=== PATIENT | male | born 1985 | race Caucasian/White ===

== ENCOUNTER 2020-10-03 07:55 | Emergency (ER) | payer OTHER, SELFPAY ==
[2020-10-03 08:06] VITALS: BP 126/67; PULSE 73; RESP 16; TEMP 36.7; O2SAT 99
[2020-10-03] MEDS: KETOROLAC 30 MG/ML VIAL (*BKC) 60 MG IM (08:52)
--- NOTE | 2020-10-03 09:01 | ED.BACK ---
HPI - Back Pain/Injury General Chief Complaint: Back Pain/Injury Stated Complaint: Back Pain Time Seen by Provider: 10/03/20 08:11 Source: patient Mode of arrival: ambulatory Limitations: no limitations History of Present Illness HPI Narrative: 34-year-old male Essentially healthy Presents for evaluation of mid back pain Patient notes that he just moved here from [place], 3 days ago he was lifting and unpacking boxes and one was heavier than he thought it was going to be and he felt something pop and pain in his mid back He has had some relief in the interim from ibuprofen but symptoms have tended to return He does not have any neurologic symptoms at all, no radiating pain, no bowel or bladder symptoms, no numbness or weakness No pain with breathing Related Data Home Medications Medication Instructions Recorded Confirmed ibuprofen 600 mg PO Q6H PRN 10/03/20 Allergies Allergy/AdvReac Type Severity Reaction Status Date / Time No Known Allergies Allergy Verified 10/03/20 08:14 Review of Systems Review of Systems: All systems reviewed & are unremarkable except as noted in HPI and below Constitutional: Constitutional: Reports no additional constitutional complaints, Denies chills, Denies fever(s) and Denies headache(s) ENT: Denies headache(s) Cardiovascular: Cardiovascular: Denies chest pain and Denies dyspnea Respiratory: Respiratory: Denies cough and Denies dyspnea Musculoskeletal: Musculoskeletal: Reports back pain, Denies deformity, Denies arthralgias, Denies joint swelling and Denies numbness Integumentary/Breasts: Skin/Breast: Denies rash and Denies wounds Neurologic: Denies headache(s), Denies focal weakness, Denies numbness and Denies weakness Psychiatric: Psychiatric: Reports no additional psychiatric complaints Endocrine: Endocrine: Reports no additional endocrine complaints Hematologic/Lymphatic: Hematologic/Lymphatic: Reports no additional hematologic/lymphatic complaints Allergic/Immunologic: Allergic/Immunologic: Reports no additional allergic/immunologic complaints [facility] Social History Social History Gender identity (if verbalized by the patient): Male Exam Const: General: cooperative, no acute distress and alert Orientation/consciousness: patient oriented x3 (alert) HENMT: Head: normal to inspection, normocephalic and atraumatic Ears: external ears normal General nose exam: no epistaxis Eyes: Conjunctivae: conjunctivae normal EOM: EOMs intact bilaterally Neck: Neck: normal visual inspection, supple and no JVD Resp: Effort & Inspection: normal respiratory effort and not labored Auscultation: clear to auscultation bilaterally and other (BS =) Cardio: Rate: regular rate Rhythm: regular rhythm Heart sounds: no murmurs Back/Spine/Pelvis: Other: He has thoracic paraspinous tenderness and muscle spasm bilaterally which is a little bit worse on the right side starting infrascapular and approaching the lumbar area He has no rib tenderness, no focal midline tenderness Rotation to the right is mildly limited Skin: General skin exam: normal color and no rashes or lesions noted Neuro: General: patient oriented x3 (alert) and moves all extremities Speech: normal speech Other: Straight leg raise negative bilaterally while seated Extrem: General: normal to inspection Psych: Affect: normal affect Course Vital Signs Vital signs: Vital Signs Temperature 36.7 C 10/03/20 08:06 Pulse Rate 73 10/03/20 08:06 Respiratory Rate 16 10/03/20 08:06 Blood Pressure 126/67 10/03/20 08:06 Pulse Oximetry 99 10/03/20 08:06 Temperature 36.7 C 10/03/20 08:06 Pulse Rate 73 10/03/20 08:06 Respiratory Rate 16 10/03/20 08:06 Blood Pressure 126/67 10/03/20 08:06 Pulse Oximetry 99 10/03/20 08:06 Discharge Plan Discharge Clinical Impression: Acute thoracic myofascial strain Patient Disposition: Home, Self-Care Condition: Stable Instruc
== END 2020-10-03 09:14 | disposition home or self-care (01) ==
PROVIDERS: Emergency Provider Emergency Medicine
DX: S29.012A Strain of muscle and tendon of back wall of thorax, initial encounter (principal); X50.0XXA Overexertion from strenuous movement or load, initial encounter
CPT/HCPCS: 96372; 99283; J1885

== ENCOUNTER 2020-11-05 06:14 | Emergency (ER) | payer OTHER, SELFPAY ==
--- NOTE | ~2020-11-05 | XR_ITS ---
EXAMINATION: XR wrist RT min 3V, XR forearm RT 2V EXAM DATE: 11/05/2020 07:43 INDICATION: Trauma;gen pain Rt wrist and forearm; fall down stairs last p.m.. Initial encounter. TECHNIQUE: Right wrist frontal, frontal with ulnar deviation, oblique and lateral projections obtain ed and reviewed. Right forearm frontal and lateral projections obtained and reviewed. There is no p rior study for comparison. FINDINGS: Right wrist scapholunate joint space is maintained. There are no acute wrist or forearm fra ctures or dislocations identified. There is no subcutaneous gas. The soft tissue is unremarkable. There are no radiopaque foreign bodies. IMPRESSION: 1. Right wrist, forearm exam without acute osseous findings. Reviewed, dictated and finalized at location A. IMPRESSION: 1. Right wrist, forearm exam without acute osseous findings.
[2020-11-05 06:22] VITALS: BP 137/95; PULSE 80; RESP 16; TEMP 36.3; O2SAT 99
--- NOTE | 2020-11-05 07:57 | ED.GENADULT ---
HPI - General Adult General Chief complaint: Extremity Injury, Upper Stated complaint: injury to right forearm Time Seen by Provider: 11/05/20 07:01 History of Present Illness HPI narrative: Patient is a 34-year-old male who presents ER with right forearm and wrist pain. He had a trip and fall last night where he landed on outstretched hand. Sudden onset pain and had some tingling. He continues to ache and have discomfort with flexion extension of the wrist. No new numbness or tingling at this time. He did not strike his head or lose consciousness. Has not tried any pain medication. Related Data Home Medications Medication Instructions Recorded Confirmed ibuprofen 600 mg PO Q6H PRN 10/03/20 Allergies Allergy/AdvReac Type Severity Reaction Status Date / Time No Known Allergies Allergy Verified 11/05/20 06:15 Review of Systems Musculoskeletal: Musculoskeletal: Denies back pain, Reports arthralgias, Denies joint swelling and Denies muscle cramps Neurologic: Denies syncope, Denies focal weakness and Denies numbness PMFSH Past Medical History Medical History (Updated 11/05/20 @ 08:00 by Triston Lake MD) Healthy adult male Surgical History Surgical History (Updated 11/05/20 @ 07:58 by Triston Lake MD) No history of previous surgery Social History Social History (Updated 11/05/20 @ 07:58 by Triston Lake MD) Smoking status: Never smoker Gender identity (if verbalized by the patient): Male Exam Narrative: Exam Narrative: GENERAL: Well-appearing, well-nourished, and in no acute distress. HEAD: Normocephalic, atraumatic. HEART: Regular rate and rhythm. Normal peripheral pulses. EXTREMITIES: Focused exam of the right upper extremity reveals normal range of motion of the wrist and elbow with mild discomfort of the mid forearm distal forearm. No swelling or deformity noted. Neurovascular intact. SKIN: Warm, dry, no rash. NEURO: Alert and oriented x3. PSYCH: Normal mood and affect. Course Course Emergency Course: Imaging unremarkable. Discharge home with anti-inflammatories and work note. Vital Signs Vital signs: Vital Signs Temperature 97.3 F L 11/05/20 06:22 Pulse Rate 80 11/05/20 06:22 Respiratory Rate 16 11/05/20 06:22 Blood Pressure 137/95 H 11/05/20 06:22 Pulse Oximetry 99 11/05/20 06:22 Temperature 97.3 F L 11/05/20 06:22 Pulse Rate 80 11/05/20 06:22 Respiratory Rate 16 11/05/20 06:22 Blood Pressure 137/95 H 11/05/20 06:22 Pulse Oximetry 99 11/05/20 06:22 Medical Decision Making Vital Signs Vital Signs: Vital Signs Temperature 97.3 F L 11/05/20 06:22 Pulse Rate 80 11/05/20 06:22 Respiratory Rate 16 11/05/20 06:22 Blood Pressure 137/95 H 11/05/20 06:22 Pulse Oximetry 99 11/05/20 06:22 Temperature 97.3 F L 11/05/20 06:22 Pulse Rate 80 11/05/20 06:22 Respiratory Rate 16 11/05/20 06:22 Blood Pressure 137/95 H 11/05/20 06:22 Pulse Oximetry 99 11/05/20 06:22 Imaging Data Radiologist's impression: ITS Impressions Forearm X-Ray 11/05/20 07:46 IMPRESSION: 1. Right wrist, forearm exam without acute osseous findings. Wrist X-Ray 11/05/20 07:46 IMPRESSION: 1. Right wrist, forearm exam without acute osseous findings. Discharge Plan Discharge Clinical Impression: Sprain and strain of wrist Patient Disposition: Home, Self-Care Condition: Stable Instructions: Wrist Sprain (ED) Additional Instructions: Return to the ER if you suffer new injury, you have new numbness or tingling in your hand, or you have additional concerns. Take anti-inflammatory medication to help with your discomfort. Prescriptions: New naproxen 500 mg tablet 500 mg PO BID Qty: 14 RF: 0 No Action ibuprofen 200 mg Tablet 600 mg PO Q6H PRN (Reason: Pain) RF: 0 naproxen 500 mg tablet 500 mg PO BID Qty: 20 RF: 0 cyclobenzaprine 10 mg tablet 10 mg PO TID Qty
[2020-11-05 09:05] VITALS: BP 136/80; PULSE 70; RESP 18; O2SAT 97
== END 2020-11-05 09:05 | disposition home or self-care (01) ==
PROVIDERS: Emergency Provider Emergency Medicine
DX: S63.501A Unspecified sprain of right wrist, initial encounter (principal); W01.0XXA Fall on same level from slipping, tripping and stumbling without subsequent striking against object, initial encounter
CPT/HCPCS: 73090; 73110; 99283